=== PATIENT | female | born 1980 | race Caucasian/White ===

== ENCOUNTER 2017-10-14 12:41 | Emergency (ER) | payer BC ==
[2017-10-14 13:03] VITALS: BP 142/84
--- NOTE | 2017-10-14 13:33 | UC ---
Lower Extremity/Ankle HPI - HPI Summary HPI Summary: Patient states she rolled her right ankle about 9 days ago. She wrapped it and it seemed improved; however, she started to have more swelling in the ankle and foot as well as pain to the outside of the foot. She denies any fever or chills. She denies any recurrent injury. And has no numbness or tingling. - History of Current Complaint Chief Complaint: UCLowerExtremity Stated Complaint: LEFT ANKLE INJURY/PAIN Time Seen by Provider: 10/14/17 13:26 Hx Obtained From: Patient, Family/Supervisor [place] Hx Last Menstrual Period: 10/06/17 Pain Intensity: 8 Aggravating Factor(s): Standing, Ambulation Alleviating Factor(s): Rest Able to Bear Weight: Yes - Risk Factors Gout Risk Factors: Negative Septic Arthritis Risk Factor: Negative - Allergies/Home Medications Allergies/Adverse Reactions: Allergies Allergy/AdvReac Type Severity Reaction Status Date / Time [facility] Allergy Unknown Verified 10/14/17 12:59 Reaction Details Penicillins Allergy Unknown Verified 10/14/17 12:59 Reaction Details Home Medications: Home Medications Ibuprofen TAB* [Motrin TAB* 400 MG] 400 mg PO Q6H PRN 10/14/17 [History Confirmed 10/14/17] Norgestimate-Ethinyl Estradiol [Trinessa Tablet] 1 each PO DAILY 10/14/17 [ History Confirmed 10/14/17] Sertraline* [Zoloft*] 75 mg PO DAILY 10/14/17 [History Confirmed 10/14/17] PMH/Surg Hx/FS Hx/Imm Hx Psychological History: Anxiety - Surgical History Surgical History: Yes Surgery Procedure, Year, and Place: - Family History Known Family History: Positive: None - Social History Occupation: Employed Full-time Lives: With Family Alcohol Use: Occasionally Substance Use Type: None Smoking Status (MU): Never Smoked Tobacco - Immunization History Vaccination Up to Date: Yes Review of Systems Constitutional: Negative Skin: Negative Eyes: Negative ENT: Negative Respiratory: Negative Cardiovascular: Negative Gastrointestinal: Negative Genitourinary: Negative Motor: Negative Neurovascular: Negative Musculoskeletal: Other: - pain/swell L ankle Neurological: Negative Psychological: Negative Is Patient Immunocompromised?: No All Other Systems Reviewed And Are Negative: Yes Physical Exam Triage Information Reviewed: Yes Appearance: Well-Appearing Vital Signs: Initial Vital Signs Temp 98 F 10/14/17 12:56 Pulse 101 10/14/17 12:56 Resp 20 10/14/17 12:56 BP 142/84 10/14/17 12:56 Pulse Ox 100 10/14/17 12:56 Vital Signs Reviewed: Yes Eyes: Positive: Conjunctiva Clear ENT: Positive: Normal ENT inspection Neck: Positive: Supple, Nontender, No Lymphadenopathy Respiratory: Positive: Lungs clear, Normal breath sounds Cardiovascular: Positive: RRR, No Murmur, Other: - no tachycardia Abdomen Description: Positive: Nontender, No Organomegaly, Soft Bowel Sounds: Positive: Present Musculoskeletal: Positive: Other: - Left lower extremity exam: Hip knee and Achilles are atraumatic. There is mild swelling to the left lateral ankle. The lateral ankle is tender to palpation but not warm or red. Passive range of motion is intact. The foot is slightly swollen but nontender, non-warm and has full sensorivascular motor function. Neurological: Positive: Alert Psychological: Positive: Age Appropriate Behavior Skin Exam: Normal Diagnostics - Radiology No standard instances Radiology Interpretation Completed By: Radiologist - sts, no fx. L ankle; however, I think ? faint lucency Lateral talus(won't change tx) Lower Extremity Course/Dx - Course Course Of Treatment: no concern for infection, not red, warm and no fever. active rom intact. NO HX HTN, I THINK bp VISIT RELATED. - Differential Dx/Diagnosis Provider Diagnoses: Sprain L ankle. Possible small avulsion fx from talus Discharge - Sign-Out/Discharge Documenting (check all that apply): Discharge/Admit/Transfer - Discharge Plan Condition: Stable Disposition: HOME Patient Education Materials: Ankle Sprain (DC) Forms: *Work Release Referrals: Paola Linn MD [Primary Care Provider] - If Needed Lio Avina MD [Medical Doctor] - 6 Days Additional Instructions: splint and crutches until cleared - Billing Disposition and Condition Condition: STABLE Disposition: Home
--- NOTE | 2017-10-14 13:55 | RAD ---
Indication: Left ankle injury. 3 views of left ankle demonstrate soft tissue swelling. No fracture is identified. IMPRESSION: No fracture of the left ankle is noted. Soft tissue swelling is noted.
== END 2017-10-14 14:21 | disposition home or self-care (01) ==
LOC: UCCORT 12:41
DX: S93.402A Sprain of unspecified ligament of left ankle, initial encounter (principal); X50.0XXA Overexertion from strenuous movement or load, initial encounter; Y93.9 Activity, unspecified; Y92.9 Unspecified place or not applicable; Z88.1 Allergy status to other antibiotic agents; Z88.0 Allergy status to penicillin; F41.9 Anxiety disorder, unspecified
CPT/HCPCS: 99203; G0463